=== PATIENT | male | born 1955 | race Caucasian/White ===

== ENCOUNTER → 2016-07-04 | Outpatient (CLI) | payer OTHER ==
[~2016-07-04] MED LIST: ASPCH81X PO; CHOL1TAB46 PO; LSN/2025 PO; MAGN400T6 PO; METO1TAB66 PO; MULT1CHW28 PO; OMEP20CA9 PO; OXYC-57 PO; PRVC20 PO
[2016-07-04 16:40] LABS: BASO % 0.5 %; BASO ABS # 0.06 K/uL (0-0.2); COMPLETE YES; EOS % 1.6 %; HEMATOCRIT 45.3 % (42-52); IG% 0.3 %; LYMPH % 27.4 %; LYMPH ABS # 2.99 K/uL (1.2-3.4); MEAN CELL VOLUME 91.3 fL (80-100); MEAN CORPUSCULAR HEMOGLOBIN 32.5 pg (25-34); MEAN CORPUSCULAR HGB CONC 35.5 g/dl (32-36); MEAN PLATELET VOLUME 9.3 fL (7.4-10.4); MONO % 8.3 %; NEUT % 61.9 %; PLATELET COUNT 255 K/uL (130-400); RED BLOOD COUNT 4.96 M/uL (4.7-6.1); WHITE BLOOD COUNT 10.91 K/uL (4.8-10.8)
[2016-07-04 16:58] LABS: BLOOD UREA NITROGEN 14 mg/dl (7-18); CALCIUM 9.8 mg/dl (8.5-10.1); CARBON DIOXIDE 32 mmol/L (21-32); CHLORIDE 102 mmol/L (98-107); CREATININE 0.91 mg/dl (0.60-1.40); GLUCOSE 92 mg/dl (70-99); POTASSIUM 4.9 mmol/L (3.5-5.1); SODIUM 140 mmol/L (136-145)
== END | disposition home or self-care (01) ==
LOC: C.LAB 16:07
PROVIDERS: ATTEND Surgery
DX: K40.90 Unilateral inguinal hernia, without obstruction or gangrene, not specified as recurrent (principal)

== ENCOUNTER 2016-07-12 07:08 | Day surgery (SDC) | payer OTHER ==
[2016-07-09 15:32] VITALS: BMI 28.0
[~2016-07-12] VITALS: Ht 172.7 cm; Wt 84.1 kg
[~2016-07-12 07:08] MED LIST changes: +LACTATED RINGER'S 1000ML 1,000 ML IV SCH; -MULT1CHW28 PO; -OXYC-57 PO
[2016-07-12 07:24] VITALS: BP 156/91; PULSE 75; TEMP 36.5; O2SAT 95; Ht 172.7 cm; Wt 84.1 kg
[2016-07-12] MEDS ORDERED: MIDAZOLAM HCL 1 MG/ML 2ML VIAL ONE (07:45)
[2016-07-12] MEDS ORDERED: FENTANYL CITRATE INJ 50 MCG/1 ML 2 ML VIAL ONE (07:45)
[2016-07-12] MEDS ORDERED: PHENYLEPHRINE 100MCG/ML 5ML SYR ONE (07:47)
[2016-07-12] MEDS ORDERED: LIDOCAINE HCL 2% 2 ML VIAL (20MG/ML) ONE (07:47)
[2016-07-12] MEDS ORDERED: DEXAMETHASONE SOD INJ 4 MG/ML VIAL ONE (07:47)
[2016-07-12] MEDS ORDERED: ONDANSETRON INJ 2 MG/ML 2 ML VIAL ONE (07:47)
[2016-07-12] MEDS ORDERED: PROPOFOL IV EMULSION 10 MG/ML 20 ML VIAL IV ONE ×2 (07:47→09:11)
--- NOTE | 2016-07-12 08:00 | History & Physical Bridge Note ---
H&P Re-Evaluation Bridge Note: I have examined the patient, reviewed the History & Physical and in the interval since the performance of the History & Physical I have noted the following changes of clinical significance: No changes noted pt marked family at bedside
[2016-07-12] MEDS ORDERED: FENTANYL CITRATE INJ 50 MCG/1 ML 2 ML VIAL IV PRN (09:00)
[2016-07-12] MEDS ORDERED: LABETALOL HCL IV 5 MG/ML 20ML IV PRN (09:00)
[2016-07-12] MEDS ORDERED: ONDANSETRON INJ 2 MG/ML 2 ML VIAL IV PRN ×2 (09:00→10:30)
[2016-07-12] MEDS ORDERED: ATROPINE SULFATE 0.1 MG/ML 5ML SYR IV PRN (09:00)
[2016-07-12] MEDS ORDERED: KETOROLAC TROMETHAMINE 30 MG/ML VIAL IV. PRN (09:00)
[2016-07-12] MEDS ORDERED: CEFAZOLIN SOD 1 GM VIAL ONE (09:11)
[2016-07-12] MEDS ORDERED: ROCURONIUM BROMIDE 10 MG/ML 5 ML VIAL ONE (09:40)
[2016-07-12] MEDS ORDERED: BACITRACIN 50000 UNIT VIAL IR ONE (10:12)
[2016-07-12] MEDS ORDERED: BUPIVACAINE 0.5 % 5 MG/1 ML MPF 30ML VIAL INJ ONE (10:12)
--- NOTE | 2016-07-12 10:21 | [facility] Post Operative Brief Note ---
Immediate Operative Summary Operative Date Jul 12, 2016. Pre-Operative Diagnosis Left inguinal hernia Post-Operative Diagnosis Large indirect sliding left inguinal hernia Procedure(s) Performed Left open inguinal hernia repair with mesh Surgeon Dr. Nicolás Nicolas Aeroplane Pilot Surgeon(s) None Estimated Blood Loss 5 cc Findings large left indirect sliding hernia Specimens B: lipoma of cord
[2016-07-12] MEDS ORDERED: LACTATED RINGER'S 1000ML 1,000 ML IV SCH (10:25)
[2016-07-12] MEDS ORDERED: OXYC-57 PO (10:28)
[2016-07-12] MEDS ORDERED: OXYCODONE/ACETAMINOPHEN 5-325 TAB PO PRN (10:30)
[2016-07-12] MEDS ORDERED: HYDROmorphone INJ 2 MG/ML SYR/VIAL IV PRN (10:30)
--- NOTE | 2016-07-12 10:30 | Discharge Instructions ---
Discharge Instructions Visit Reason for Visit: Left Inguinal Hernia Discharge Discharge Diagnosis / Problem: s/p left major hernia repair with mesh Discharge Goals Goal(s): Decrease discomfort Activity Recommendations Activity Limitations: per Instructions/Follow-up section Lifting Limitations: no more than 5 pounds May Resume Sexual Activity: when tolerated Shower/Bathe: tomorrow Driving or Machine Use: resume 3 days after discharge Anesthesia . Post Anesthesia Instructions: If you have had General Anesthesia or IV Sedation: * Do not drive today. * Resume driving when surgeon permits. * Do not make important decisions or sign legal documents today. * Call surgeon for: 1. Temperature elevations greater than 101 degrees F. 2. Uncontrollable pain. 3. Excessive bleeding. 4. Persistent nausea and vomiting. 5. Medication intolerance (nausea, vomiting or rash). * For nausea and vomiting use only clear liquids such as: tea, soda, bouillon until nausea subsides, then gradually increase diet as tolerated. * If you have any concerns or questions, call your surgeon's office. If physician is unavailable and it is an emergency, call 911 or go to the nearest emergency room. . Diet Recommendations Recommended Home Diet: resume previous diet (call [phone] for any problems, return office 1 week) Procedures Procedures Performed: Left open inguinal hernia repair with mesh Medical Emergencies . Who to Call and When: Medical Emergencies: If at any time you feel your situation is an emergency, please call 911 immediately. . Non-Emergent Contact . . "Provider Documentation" section prepared by Nicolás Nicolas.
--- NOTE | 2016-07-12 10:50 | OPERATIVE REPORT ---
DATE OF OPERATION: 07/12/2016 PREOPERATIVE DIAGNOSIS: Left inguinal hernia. POSTOPERATIVE DIAGNOSIS: Left indirect sliding inguinal hernia. PROCEDURE: Left indirect sliding inguinal hernia repair with Marlex mesh. SURGEON: Dr. Nicolas. OPERATION AND FINDINGS: SUMMARY: The patient was brought into the operating room theater. Under general LMA anesthesia the left lower quadrant was prepped with Betadine scrubbing solution and properly draped. We made an incision parallel to the inguinal ligament. After preemptive analgesia 1% Xylocaine with epinephrine, 2 fingerbreadths medial and anterior superior iliac crest, deepened through subcutaneous tissue onto the external oblique. The external oblique was then opened along the course of its fibers. We could see some incarcerated tissue at the external ring. Once we opened the external oblique and found elevated superiorly under hemostats we were able to identify the patient cord had a significant amount of fatty tissue along the cord. As we went in we could identify the hernial sac, I opened it and actually had a sliding component of the sigmoid colon indirect area, hard to reduce completely and free it from the wall therefore I closed the peritoneum that we had opened as far as the hernia sac with a chromic suture. We then freed the indirect area from the cord and returned to the preperitoneal closed with interrupted 3-0 silk suture to hold the indirect component in the preperitoneal area as was lateral to the internal ring. At this point we brought a sheet of Marlex mesh onto the field and onlaid it after we had some lipoma of the cord and once small segment of incarcerated fatty tissue. The mesh were onlaid on the symphysis pubis, shelving portion of inguinal ligament inferior to the conjoined tendon superiorly around the internal ring that could only accommodate the tip of a hemostat. Hemostasis was satisfactory. More local was used topically and then the external oblique was closed over the cord structure with 3-0 interrupted silk, 3-0 Dexon and iza for skin edges. Dressing was applied. The procedure was tolerated well by the patient and was taken to recovery room in good condition. I attest to the content of the Intraoperative Record and any orders documented therein. Any exceptio ns are noted below.
--- NOTE | 2016-07-12 10:56 | Anesthesiology Progress Note ---
Anesthesia Post Op Note Date & Time Jul 12, 2016 at 10:55 Vital Signs Pain Intensity: 3 Vital Signs Past 12 Hours Date Time Temp Pulse Resp B/P Pulse Ox O2 Delivery O2 Flow Rate FiO2 07/12/16 10:50 36.4 73 16 138/88 96 Nasal Cannula 2 07/12/16 10:40 77 14 139/92 93 Room Air 07/12/16 10:30 73 14 127/82 96 Mask 10 07/12/16 10:20 79 14 113/71 96 Mask 10 07/12/16 10:13 36.3 67 14 102/60 95 Mask 10 07/12/16 07:24 36.5 75 16 156/91 95 Room Air Notes Mental Status: alert / awake / arousable, participated in evaluation Pt Amnestic to Procedure: Yes Nausea / Vomiting: adequately controlled Pain: adequately controlled Airway Patency, RR, SpO2: stable & adequate BP & HR: stable & adequate Hydration State: stable & adequate Anesthetic Complications: no major complications apparent
[2016-07-12 11:00] VITALS: BP 141/84; PULSE 74; TEMP 36.4; O2SAT 94
[2016-07-12 11:30] VITALS: BP 146/88; PULSE 72; O2SAT 92
[2016-07-12 12:00] VITALS: BP 151/90; PULSE 69; TEMP 36.6; O2SAT 94
[2016-07-12 12:30] VITALS: BP 144/89; PULSE 71; TEMP 36.6; O2SAT 94
== END 2016-07-12 12:53 | disposition home or self-care (01) ==
LOC: C.ACU 07:08
PROVIDERS: ATTEND Surgery
DX: K40.90 Unilateral inguinal hernia, without obstruction or gangrene, not specified as recurrent (principal); K57.30 Diverticulosis of large intestine without perforation or abscess without bleeding; K76.9 Liver disease, unspecified; K86.9 Disease of pancreas, unspecified; Z82.49 Family history of ischemic heart disease and other diseases of the circulatory system